=== PATIENT | female | born 1990 | race Caucasian/White ===

== ENCOUNTER 2023-10-24 18:37 | Emergency (ER) | payer OTHER ==
[~2023-10-24] VITALS: Ht 165.1 cm; Wt 49.9 kg
[2023-10-24] MEDS ORDERED: ONDANSETRON HCL/PF 4 MG/2 ML VIAL ONE (19:31)
[2023-10-24] MEDS: IV NS 0.9% 1,000 ML BAG IV ONE (19:40)
[2023-10-24] MEDS: ONDANSETRON HCL/PF 4 MG/2 ML VIAL IVP ONE (19:42)
[2023-10-24 20:11] LABS: BASOPHILS # (AUTO) 0.1 K/uL (0.0-0.2); BASOPHILS % (AUTO) 0.9 % (0.0-2.0); HEMATOCRIT 40 % (33-45); HEMOGLOBIN 13.4 g/dL (11.5-14.8); LYMPHOCYTES # (AUTO) 0.3 K/uL (0.8-4.8); LYMPHOCYTES % (AUTO) 3.6 % (20.0-44.0); MEAN CORPUSCULAR HEMOGLOBIN 29 PG (26.0-33.0); MEAN CORPUSCULAR HGB CONC 34 g/dl (31.0-36.0); MEAN CORPUSCULAR VOLUME 86 fL (82-100); MONOCYTES # (AUTO) 0.4 K/uL (0.1-1.30); MONOCYTES % (AUTO) 5.5 % (2.0-12.0); NEUTROPHILS # (AUTO) 6.8 K/uL (1.8-8.9); PLATELET COUNT (AUTO) 255 K/uL (150-450); RED BLOOD CELL COUNT(AUTO) 4.64 MIL/uL (4.0-5.2); RED CELL DISTRIBUTION WIDTH 13.9 % (11.5-15.0); WHITE BLOOD COUNT (AUTO) 7.6 K/uL (4.3-11.0)
[2023-10-24 20:33] LABS: CALCIUM, SERUM 8.9 mg/dL (8.5-10.1); CREATININE 0.6 mg/dL (0.6-1.3); POTASSIUM 3.1 mmol/L (3.5-5.1)
[2023-10-24 20:38] LABS: ALBUMIN 4.1 g/dL (3.4-5.0); BILIRUBIN,DIRECT 0.2 mg/dL (0.0-0.2); BILIRUBIN,TOTAL 0.8 mg/dL (0.2-1.0); TOTAL PROTEIN, SERUM 7.7 g/dL (6.4-8.2)
[2023-10-24 21:19] LABS: PREGNANCY TEST URINE QUAL NEGATIVE (NEGATIVE)
[2023-10-24 21:21] LABS: APPEARANCE,URINE Clear (CLEAR); BILIRUBIN,URINE SMALL (NEGATIVE); BLOOD, URINE Negative Ery/uL (NEGATIVE); COLOR,URINE YELLOW (YELLOW); KETONES,URINE >=160 mg/dL (NEGATIVE); LEUKOCYTE ESTERASE ,URINE Negative (NEGATIVE); NITRITE, URINE Negative (NEGATIVE); PROTEIN,URINE Negative (NEGATIVE); UGLUCOSE Negative (NEGATIVE); UROBILINOGEN,URINE 0.2 EU/dL (0.2)
[2023-10-24 21:27] LABS: ADD URINE CULTURE NO; BACTERIA,URINE 1+ /HPF (None Seen); WBC,URINE 0-2 /HPF (0-3)
[2023-10-24] MEDS ORDERED: ONDA4TAB5 PO (22:53)
[2023-10-24 23:10] VITALS: BP 114/74; TEMP 99.1; O2SAT 100
== END 2023-10-24 23:11 | disposition home or self-care (01) ==
LOC: ER 18:44
DX: R11.2 Nausea with vomiting, unspecified (principal); R10.13 Epigastric pain; R50.9 Fever, unspecified; R05.9 Cough, unspecified; J02.9 Acute pharyngitis, unspecified; Z88.8 Allergy status to other drugs, medicaments and biological substances; Z20.822 Contact with and (suspected) exposure to COVID-19
CPT/HCPCS: 99283; 96374; 96361; 87426; 85025; 80048; 83690; 80076; 84703; 81001; 36415; J2405